=== PATIENT | female | born 1970 | race Caucasian/White ===

== ENCOUNTER 2020-11-26 15:34 | Emergency (ER) | payer BC ==
[2020-11-26] MEDS ORDERED: Sulfameth/Trimethoprim DS 800-160mg TAB ONE (16:18)
[2020-11-26] MEDS ORDERED: cefTRIAXone\\ROCEPHIN 1 GM VIAL ONE (16:18)
== END 2020-11-26 16:51 | disposition home or self-care (01) ==
LOC: NAV ERS 15:34
DX: L03.116 Cellulitis of left lower limb (principal); E78.5 Hyperlipidemia, unspecified; I10 Essential (primary) hypertension; Z79.82 Long term (current) use of aspirin; Z79.899 Other long term (current) drug therapy
CPT/HCPCS: 96372; 99282; J0696

== ENCOUNTER 2025-03-30 17:12 | Emergency (ER) | payer BC, SELFPAY | END 2025-03-30 19:22 | disposition home or self-care (01) | LOC: NAV ERS 17:12 | DX: M53.3 Sacrococcygeal disorders, not elsewhere classified (principal); M54.32 Sciatica, left side; I10 Essential (primary) hypertension; Z86.73 Personal history of transient ischemic attack (TIA), and cerebral infarction without residual deficits; Z79.02 Long term (current) use of antithrombotics/antiplatelets; Z79.899 Other long term (current) drug therapy | CPT/HCPCS: 96372; J1885; J2919 ==